=== PATIENT | male | born 1985 | race Caucasian/White ===

== ENCOUNTER 2020-01-25 13:05 | Emergency (ER) | payer OTHER ==
[~2020-01-25] VITALS: Ht 193 cm; Wt 99.8 kg
[2020-01-25 13:26] VITALS: BP 128/81
--- NOTE | 2020-01-25 13:35 | NUR ---
SHELBI WRAP APPLIED BY STROKE COORDINATOR.
--- NOTE | 2020-01-25 13:37 | NUR ---
Patient discharged to home in stable condition. Written and verbal after care instructions given. Patient verbalizes understanding of instruction.
== END 2020-01-25 13:38 | disposition home or self-care (01) ==
LOC: ER 13:09
DX: S83.203A Other tear of unspecified meniscus, current injury, right knee, initial encounter (principal); X58.XXXA Exposure to other specified factors, initial encounter; Y93.89 Activity, other specified; Y92.511 Restaurant or cafe as the place of occurrence of the external cause; Y99.8 Other external cause status